=== PATIENT | male | born 1965 | race American Indian/Alaskan Native ===

== ENCOUNTER 2017-11-04 10:30 | Day surgery (SDC) | payer OTHER ==
[2017-10-28 11:50] VITALS: BMI 27.3
[2017-11-04] MEDS ORDERED: Lidocaine 2% Inj (20ml) ONE (13:06)
[2017-11-04] MEDS ORDERED: Propofol 10 mg/ml Inj (20 ML) ONE ×2 (13:06→13:31)
[2017-11-04] MEDS ORDERED: Sodium Chloride 0.9% 1,000 ML IV SCH (14:15)
[2017-11-04 14:42] VITALS: PULSE 69; RESP 17; O2SAT 96
[2017-11-04 15:08] VITALS: BP 103/72; TEMP 98.3
== END 2017-11-04 15:16 | disposition home or self-care (01) ==
LOC: ENDO 10:30
PROVIDERS: ATTEND Internal Medicine
DX: K21.0 Gastro-esophageal reflux disease with esophagitis (principal); D12.2 Benign neoplasm of ascending colon; K29.70 Gastritis, unspecified, without bleeding; K44.9 Diaphragmatic hernia without obstruction or gangrene; K63.5 Polyp of colon; K64.8 Other hemorrhoids
CPT/HCPCS: 43239; 45380; 45381; 45385; 88305; 88342; J2704; J7040 ×2

== ENCOUNTER 2018-02-03 11:36 | Day surgery (SDC) | payer OTHER ==
[2017-10-28 11:50] VITALS: BMI 27.3
[2018-02-03] MEDS ORDERED: Propofol 10 mg/ml Inj (20 ML) ONE (12:03)
[2018-02-03] MEDS ORDERED: Sodium Chloride 0.9% 1,000 ML IV SCH ×2 (12:45→13:30)
[2018-02-03 14:13] VITALS: BP 124/94; PULSE 65; RESP 19; TEMP 97.7; O2SAT 98
== END 2018-02-03 14:28 | disposition home or self-care (01) ==
LOC: ENDO 11:36
PROVIDERS: ATTEND Internal Medicine
DX: K21.0 Gastro-esophageal reflux disease with esophagitis (principal); K22.70 Barrett's esophagus without dysplasia; K29.70 Gastritis, unspecified, without bleeding; K44.9 Diaphragmatic hernia without obstruction or gangrene
CPT/HCPCS: 43239; 88305; 88312; J2001; J2704; J3010; J7040 ×2